=== PATIENT | female | born 1980 | race Caucasian/White ===

== ENCOUNTER 2023-12-02 20:17 | Emergency (ER) | payer BC ==
[2023-12-02] MEDS: Ketorolac 60 MG/2 ML SDV IM ONE (20:51)
[2023-12-02] MEDS: predniSONE 20 MG Tab PO ONE (21:03)
[2023-12-02] MEDS: Acetaminophen/HYDROcodone 325-5 MG Tab PO ONE (22:49)
== END 2023-12-02 20:51 | disposition home or self-care (01) ==
LOC: JD.ED 20:17
DX: M54.17 Radiculopathy, lumbosacral region (principal); Z86.16 Personal history of COVID-19; Z79.899 Other long term (current) drug therapy
CPT/HCPCS: 96372; 99283; A9270; J1885; J7512